=== PATIENT | female | born 1955 | race Caucasian/White ===

== ENCOUNTER 2023-06-21 07:00 | Day surgery (SDC) | payer BC ==
[~2023-06-21 07:00] MED LIST: Acetaminophen 325 MG Tab PO ONE; HYDROmorphone 0.5 MG/0.5 ML Syringe IVPUSH PRN; Naloxone 0.4 MG/ML SDV IVPUSH PRN; Ondansetron 4 MG/2 ML SDV IVPUSH PRN; fentaNYL 100 MCG/2 ML SDV IVPUSH PRN
[2023-06-21] MEDS: Lactated Ringers 1,000 ML IV SCH (07:10)
[2023-06-21] MEDS: Acetaminophen 325 MG Tab PO SCH (07:37)
[2023-06-21] MEDS: Pregabalin 25 MG Cap PO SCH (07:37)
[2023-06-21] MEDS: oxyCODONE ER 10 MG TAB.ER PO SCH (07:37)
[2023-06-21 07:45] LABS: INR 0.97; PROTHROMBIN TIME 10.4 SECONDS (9.7-12.0)
[2023-06-21] MEDS ORDERED: Propofol 200 MG/20 ML SDV ONE ×2 (07:45→09:02)
[2023-06-21] MEDS ORDERED: Midazolam 1 MG/ML 2 ML SDV ONE (07:45)
[2023-06-21] MEDS ORDERED: fentaNYL 100 MCG/2 ML SDV ONE (07:45)
[2023-06-21 07:47] LABS: PTT,PARTIAL THROMBOPLSTIN TIME 28.9 SECONDS (21.7-31.4)
[2023-06-21] MEDS ORDERED: Ketorolac 30 MG/ML SDV ONE ×2 (07:47→09:04)
[2023-06-21] MEDS ORDERED: Ondansetron 4 MG/2 ML SDV ONE ×2 (07:47→09:01)
[2023-06-21] MEDS ORDERED: Clindamycin Phosphate in D5W 900 MG in Premix Bag 1 BAG IV ONE (08:13)
[2023-06-21] MEDS ORDERED: Phenylephrine 1% 10 MG/ML SDV ONE (09:01)
[2023-06-21] MEDS ORDERED: Sodium Chloride 0.9% 100 ML ONE (09:06)
[2023-06-21] MEDS ORDERED: oxyCODONE 5 MG Tab PO PRN ×2 (09:08→14:25)
[2023-06-21] MEDS: Morphine 8 MG, EPINEPHrine 0.3 MG, Cefuroxime 750 MG, Ketorolac 30 MG, Sodium Chloride ... PRN (09:38)
[2023-06-21] MEDS: Vancomycin 1 GM SDV ONE (09:39)
[2023-06-21] MEDS: Tranexamic Acid 1,000 MG/10 ML Vial ONE (09:39)
[2023-06-21] MEDS ORDERED: Ropivacaine 0.5% 5 MG/ML 30 ML SDV ONE (09:55)
[2023-06-21] MEDS: oxyCODONE 5 MG Tab PO PRN (14:30)
== END 2023-06-21 14:45 | disposition home or self-care (01) ==
LOC: JD.SDS 07:00
PROVIDERS: ATTEND Orthopaedic Surgery
DX: M17.11 Unilateral primary osteoarthritis, right knee (principal); Z87.891 Personal history of nicotine dependence; Z79.899 Other long term (current) drug therapy
CPT/HCPCS: 01402; 36415; 64447; 73560-26-RT; 73560-RT; 85610; 85730; 97116-GP; 97161-GP; A9270-GY; C1713; C1776; J0171; J0697; J0736; J1885; J2250; J2270; J2371; J2405; J2704; J2795; J3010; J3370; J3490; J7030; J7120